=== PATIENT | male | born 1965 | race Caucasian/White ===

== ENCOUNTER 2017-05-13 06:05 | Day surgery (SDC) | payer OTHER ==
[~2017-05-13 06:05] MED LIST: ACET325UDC; ACET325UDC PO; AMOX500 PO; Abreva2 GM TOP; CEFU250 PO; CHLO100 PO; CHLORHEXADINE; CHLORHEXIDINE 0.12%; CITRATE OF MAG296 ML PO; CLAR500 PO; CLOBETTC; CLOBETTC TP; CODEINE; DIAZ10; DIAZ10 PO; DIAZ5 PO; DICL75ER; DICL75ER PO; DIPH12.5EL PO; DIPH50 PO; GUAI100SY; GUAI120S1 PO; GUAI600T33; GUAI600T33 PO; HALO5 PO; HALOPERIDOL; HALOPERIDOL 10 MG; Haldol 5 mg Tab5 MG; IBUP100S; IBUP100S PO; IBUP800 PO; LANACANE; LANS30EC; LANS30EC PO; LEVFLO500 PO; LORA1SY; LORA1SY PO; LORATADINE 5 MG/5 ML; MAGCIT300 PO; MIRALAX17 GM PO; MOM; MOM PO; MULT50L PO; MULVITMIND PO; OMEP20ER PO; OMEP40CA12; OMEP40CA12 PO; OMEPRAZOLE MAGN20 MG PO; PERIDEX15 ML UD; POLY17UD; POLY17UD PO; PROC10; RANI150 PO; RANI150EL PO; RANITIDINE; RANITIDINE SYRUP PO; ROBITUSSIN; Ranitidine15 MG/1 ML PO; SENN187; SENN187 PO; SENN8.8S8 PO; SENNA LAX; Senna Laxative8.6 MG PO; THIO25; THIO25 PO; TRI VITAMIN PO; TRIPLE ABX; TRIPLE ANTIBIO1 EACH TP; TRIPLE ANTIBIOT28 GM; Zofran Odt4 MG PO; [UNRECOGNIZED DRUG - OTHER]; [UNRECOGNIZED DRUG - OTHER]; [UNRECOGNIZED DRUG - OTHER]; [UNRECOGNIZED DRUG - OTHER]; [UNRECOGNIZED DRUG - OTHER]; [UNRECOGNIZED DRUG - OTHER] TOP
[2017-05-13] MEDS ORDERED: Haldol 5 mg Tab5 MG PO (07:25)
[2018-02-03] MEDS ORDERED: Abreva2 GM TOP (10:28)
[2018-02-03] MEDS ORDERED: FERROUS SULFATE PO (10:28)
[2018-02-03] MEDS ORDERED: ONDA4ODT PO (10:28)
[2018-02-05] MEDS ORDERED: LEVFLO500 PO (08:59)
== END 2017-05-13 08:38 | disposition home or self-care (01) ==
LOC: ORSCSDS 06:05
PROVIDERS: Otolaryngology
PROC: 09C37ZZ Extirpation of Matter from Right External Auditory Canal, Via Natural or Artificial Opening (ICD-10-PCS; principal; 2017-05-13 07:30)
PROC: 0HB3XZZ Excision of Left Ear Skin, External Approach (ICD-10-PCS; principal; 2017-05-13 07:30)
DX: H74.92 Unspecified disorder of left middle ear and mastoid (principal); F84.0 Autistic disorder; F20.9 Schizophrenia, unspecified; Z79.899 Other long term (current) drug therapy
CPT/HCPCS: J1100; J2250; J7120

== ENCOUNTER 2018-05-18 13:21 | Day surgery (SDC) | payer OTHER ==
[~2018-05-18] VITALS: Ht 177.8 cm; Wt 66.7 kg
[2018-05-18 08:28] LABS: BASOPHILS ABSOLUTE AUTO 0.05 K/mm3 (0.00-0.23); BASOPHILS PERCENT AUTO 0 % (0-2); EOSINOPHILS ABSOLUTE AUTO 0.04 K/mm3 (0.00-0.68); EOSINOPHILS PERCENT AUTO 0 % (0-6); Hematocrit 41.4 % (37.0-53.0); Hemoglobin 13.3 g/dL (13.5-17.5); IMMATURE GRAN ABSOLUTE AUTO 0.08 K/mm3 (0.00-0.10); IMMATURE GRAN PERCENT AUTO 1 % (0-1); LYMPHOCYTES ABSOLUTE AUTO 0.72 K/mm3 (0.84-5.20); LYMPHOCYTES PERCENT AUTO 6 % (21-46); MONOCYTES ABSOLUTE AUTO 0.79 K/mm3 (0.16-1.47); MONOCYTES PERCENT AUTO 7 % (4-13); Mean Corpuscular HGB 28.9 pg (26.0-34.0); Mean Corpuscular HGB Conc 32.1 g/dL (31.5-36.5); Mean Corpuscular Volume 90 fL (80-100); Mean Platelet Volume 9.7 fL (9.1-12.4); NEUTROPHILS ABSOLUTE AUTO 10.08 K/mm3 (1.96-9.15); NEUTROPHILS PERCENT AUTO 86 % (41-73); Platelet Count 212 K/mm3 (150-400); RDW Coefficient Variation 15.2 % (11.7-14.2); RDW Standard Deviation 50.4 fL (35.1-46.3); Red Blood Cell Count 4.61 M/mm3 (4.30-5.90); White Blood Cell Count 11.76 K/mm3 (4.00-11.30)
[2018-05-18 08:54] LABS: Anion Gap 7 mmol/L (6-16); Blood Urea Nitrogen 13 mg/dL (8-24); Bun/Creatinine Ratio 21.5 (12.0-20.0); CO2, Blood 28 mmol/L (21-32); Calcium, Blood 8.4 mg/dL (8.5-10.1); Chloride, Blood 104 mmol/L (98-108); Glomerular Filtration Rate >60 (60-); Glucose, Blood 110 mg/dL (70-99); Potassium, Blood 3.6 mmol/L (3.5-5.5); Sodium, Blood 139 mmol/L (136-145)
[2018-05-18 09:01] LABS: Thyroid Stimulating Hormone 0.758 uIU/mL (0.360-4.800)
--- NOTE | 2018-05-18 10:58 | NUR ---
05/18/18 1058 Basilia Michelle late entry: [facility]. pt is very sleepy and coughing frequently. non rebreather mask on and o2 sats maintained 93-94%. cough is dry but suction is maintained at bedside for prn use. caregivers called to pts side
[~2018-05-18 13:21] MED LIST changes: +FERROUS SULFATE PO; +Haldol 5 mg Tab5 MG PO; +IBUP600 PO; +ONDA4ODT PO
== END 2018-05-18 16:27 | disposition home or self-care (01) ==
LOC: ORSCSDS 13:21
PROVIDERS: Otolaryngology
PROC: 09C38ZZ Extirpation of Matter from Right External Auditory Canal, Via Natural or Artificial Opening Endoscopic (ICD-10-PCS; principal; 2018-05-18 07:30)
PROC: 09B Ear, Nose, Sinus, Excision (ICD-10-PCS; principal; 2018-05-18 07:30)
DX: H74.92 Unspecified disorder of left middle ear and mastoid (principal); F20.9 Schizophrenia, unspecified; Z79.899 Other long term (current) drug therapy
CPT/HCPCS: 80048; 84443; 85025; J2250; J7120

== ENCOUNTER 2018-05-18 14:18 | Inpatient (IN) | payer OTHER ==
[~2018-05-18] VITALS: Ht 165.1 cm; Wt 62.5 kg
[2018-05-18 16:17] LABS: BASOPHILS ABSOLUTE AUTO 0.03 K/mm3 (0.00-0.23); BASOPHILS PERCENT AUTO 0 % (0-2); EOSINOPHILS PERCENT AUTO 0 % (0-6); Hematocrit 42.3 % (37.0-53.0); IMMATURE GRAN ABSOLUTE AUTO 0.05 K/mm3 (0.00-0.10); IMMATURE GRAN PERCENT AUTO 0 % (0-1); LYMPHOCYTES ABSOLUTE AUTO 0.59 K/mm3 (0.84-5.20); LYMPHOCYTES PERCENT AUTO 4 % (21-46); MONOCYTES ABSOLUTE AUTO 0.88 K/mm3 (0.16-1.47); MONOCYTES PERCENT AUTO 6 % (4-13); Mean Corpuscular HGB 29.5 pg (26.0-34.0); Mean Corpuscular HGB Conc 33.1 g/dL (31.5-36.5); Mean Corpuscular Volume 89 fL (80-100); Mean Platelet Volume 9.3 fL (9.1-12.4); NEUTROPHILS ABSOLUTE AUTO 12.72 K/mm3 (1.96-9.15); NEUTROPHILS PERCENT AUTO 89 % (41-73); Platelet Count 232 K/mm3 (150-400); RDW Coefficient Variation 15.2 % (11.7-14.2); RDW Standard Deviation 50.3 fL (35.1-46.3); Red Blood Cell Count 4.74 M/mm3 (4.30-5.90); White Blood Cell Count 14.27 K/mm3 (4.00-11.30)
--- NOTE | 2018-05-19 05:12 | NUR ---
SHIFT SUMMARY PT MEDICAL NO TELE STATUS. PT ALERT, NONVERBAL. NOTED HX OF AUTISM. PT IS A RESIDENT AT [facility]. CAREGIVER AT BEDSIDE T/O SHIFT. EPISODES OF COMBATIVENESS REPORTED BY KINESIOLOGY PROFESSOR WHEN PT BEING SLID OVER FROM ER GURNEY TO PCU RM BED AT TIME OF ADMIT YESTERDAY DAY SHIFT. PT OTHERWISE CALM AND SOMETIMES COOPERATIVE. PT TOLERATING VS ASSESSMENTS. VSS. LUNGS SOUNDS CLEAR T/O. SPO2 > 92% ON RA. PT NOTED TO HAVE DRIED BLOOD IN R EAR CANAL FROM PROCEDURE AT [facility]. PT INCONTINENT, WEARING ATTENDS. PRN [facility] CARE AND ATTENDS CHANGES PROVIDED. PT NON COOPERATIVE W/ BLOOD DRAW ATTEMPTS. PERMISSION FROM MD SHEN OBTAINED TO DRAW BLOOD FROM PT'S FOOT. PT NOT ALLOWING THIS BLOOD DRAW APPROACH EITHER. FLUIDS RUNNING PER ORDERS THROUGH IV STARTED IN ER THAT CAREGIVER STATES WAS SUCCESSFULL BECAUSE PT WAS "STILL PRETTY OUT OF IT." PT IN BED SLEEPING W/ CAREGIVER AT BEDSIDE. WILL CONTINUE TO MONITOR AND PROVIDE CARE UNTIL REPORT OFF TO DAY SHIFT RN.
--- NOTE | 2018-05-19 07:50 | NUR ---
Update: Dr. Otero at bedside - to place orders for additional labs to be drawn this AM if pt allows.
--- NOTE | 2018-05-19 11:26 | NUR ---
Assumed Care: Assumed care of pt at approx 0700. VSS. In no apparent sign of distress. Pt is A&O, but is non-verbal and has a hx of autism. Pt is refusing to take anything orally at this time. Repositons self. In no apparent sing of pain. Caregiver at bedside. Dr. Otero at bedside this AM to see pt. See shift assessment for detailed assessment. No apparent unmet needs at this time. Attempted to draw labs from IV this AM, but no blood return despite IV flusing well. Pt currently resting in bed with call light within reach. Denies any further questions, complaints or requests at this time. Will continue to monitor.
--- NOTE | 2018-05-19 17:23 | NUR ---
Per admit trigger, I attempted to meet mela Delgadillo regarding an advanced directive. Per RN, he is non-verbal and unable to understand the meaning and purpose of this document. He lives at [facility]. No family or facility staff present.
--- NOTE | 2018-05-19 18:04 | NUR ---
Shift Summary No acute changes since initial shift assessment. VSS. In no apparent sign of distress. Pt has repositioned self independently. No s/sx of pain or distress. Pt was compliant with taking medications once this shift. Pt has had a poor appetite. Dr. Alas at bedside to examine pt ears, which have a small amnt of dried blood noted inside. Pt has not experienced any acute events or complications today. Currently resting in bed with call light within reach. Caregivers at bedside. Caregivers deny any further questions, complaints or requests at this time. Will continue to montior until report is given to moses PALACIO.
--- NOTE | 2018-05-20 06:43 | NUR ---
PCU NOC SHIFT SUMMARY PATIENT REMAINS ALERT AND ORIENTED TO HIS BASELINE T/O SHIFT. PATIENT IS NONVERBAL AND FIGETS IN BED. PATIENT IS MODERATELY COOPERATIVE WITH CARE. PATIENT HAD MILD FEVER RELIEVED WITH MEDICATION PER EMAR. RESP E/U ON ROOM AIR AND VSS. NO ACUTE DISTRESS NOTED T/O SHIFT. WILL CONTINUE TO MONITOR AND GIVE REPORT TO DAYSHIFT RN.
--- NOTE | 2018-05-20 12:04 | NUR ---
Assumed Care: Assumed care of pt at approx 0700. VSS. In no apparent sign of distress. Pt is A&O, but has hx of autism, is non-verbal and refusing some care. Pt more cooperative today and took AM meds. Pt did not tolerate attempts to draw AM labs this AM - paged Dr. Otero regarding pt possibly needing IV fluid therapy, positive blood culture results, and request for medication to help relax the pt to place Powerglide for future lab draws/medications. Pt currently resting in bed with call light within reach. No s/sx of pain and no apparent unmet needs at this time. Caregiver at bedside denies any further questions, complaints or requests at this time. Will continue to monitor and waiting for call back from Dr. Otero.
--- NOTE | 2018-05-20 13:18 | NUR ---
Update: Report called to mehran PALACIO on medical floor. Pt to transfer to room 303. Spoke [address] Otero, and received order for abx for positive blood cultures. Received order for sedation to place power glide. Also received order for fluids. Communicated to med floor RN that pt will need to have powerglide placed. Pt being transferred via wheelchair and accompanied by PCU staff.
[2018-05-20 15:10] LABS: BASOPHILS ABSOLUTE AUTO 0.03 K/mm3 (0.00-0.23); BASOPHILS PERCENT AUTO 0 % (0-2); EOSINOPHILS ABSOLUTE AUTO 0.19 K/mm3 (0.00-0.68); EOSINOPHILS PERCENT AUTO 1 % (0-6); Hematocrit 37.8 % (37.0-53.0); Hemoglobin 12.3 g/dL (13.5-17.5); IMMATURE GRAN ABSOLUTE AUTO 0.12 K/mm3 (0.00-0.10); IMMATURE GRAN PERCENT AUTO 1 % (0-1); LYMPHOCYTES ABSOLUTE AUTO 1.18 K/mm3 (0.84-5.20); LYMPHOCYTES PERCENT AUTO 8 % (21-46); MONOCYTES ABSOLUTE AUTO 0.83 K/mm3 (0.16-1.47); MONOCYTES PERCENT AUTO 6 % (4-13); Mean Corpuscular HGB 28.9 pg (26.0-34.0); Mean Corpuscular HGB Conc 32.5 g/dL (31.5-36.5); Mean Corpuscular Volume 89 fL (80-100); NEUTROPHILS ABSOLUTE AUTO 12.51 K/mm3 (1.96-9.15); NEUTROPHILS PERCENT AUTO 84 % (41-73); Platelet Count 209 K/mm3 (150-400); RDW Standard Deviation 49.1 fL (35.1-46.3); Red Blood Cell Count 4.26 M/mm3 (4.30-5.90); White Blood Cell Count 14.86 K/mm3 (4.00-11.30)
--- NOTE | 2018-05-20 19:46 | NUR ---
SHIFT SUMMARY PATIENT TRASNFERED FROM PCU. HX AUTISM. A&O TO SELF. NONVERBAL. PILOT BOAT CAPTAIN AT BEDSIDE. PG PLACED BY PROCEDURE NURSE IN [facility]. PATIENT VERY ANXIOUS AND AGITATED. RN MEDICATED PER EMAR. RA. FLUIDS RUNNING. CALL LIGHT WITHIN REACH. NO ACUTE CHANGES.
--- NOTE | 2018-05-21 04:51 | NUR ---
SHIFT SUMMARY PT TX FROM PCU PRIOR TO START OF NOC SHIFT. PT IS AUTISTIC, NONVERBAL AND HAS 24 HR CAREGIVERS. PER SHIFT REPORT, PT WAS HAVING ROUTINE PROCEDURE UNDER SEDATION AND ASPIRATED AT SOME POINT IN THE PROCESS. ADMITTED FOR POSSIBLE ASPIRATION PNM. PT RECEIVING IVF'S AND ABX PER EMAR WHEN HE DECIDED TO GET OOB AFTER THROWING HIS GLASS OF SODA. PT THEN BECAME UNCO-OP, AGITATED, AND VIOLENT JERKING AWAY FROM CAREGIVER AND SWINGING HIS ARMS AND FISTS AT STAFF. PT WOULD NOT RETURN TO BED OR BACK UP TO RELIEVE TENSION ON IV TUBING. PT THEN JERKED HIS ARM HARD AND RIPPED END OF TUBING FROM IV SITE, WHICH STARTED DRAINING BLOOD FROM UNCAPPED END OF TUBING. PT REFUSED TO CO-OP OR ACCEPT ASSISTANCE AND WAS SLINGING BLOOD ALL OVER SELF, STAFF, AND FLOOR. END OF TUBING EVENTUALLY CLAMPED AND PT ASSISTED BACK INTO BED. DR MEDELLIN NOTIFIED FOR ORDERS. ATIVAN ADMINISTERED AND AFTER PT HAD CALMED DOWN SOMEWHAT, CHIKA PALACIO WAS ABLE TO PLACE IV ACCESS WITH ASSIST FROM STAFF, SECURITY, AND CAREGIVER. PT WAS CONTINENT OF URINE AT START OF SHIFT, AMBULATING TO BTHRM WITH ASSIST FROM CAREGIVER. BUT LATER VOIDED "ALL OVER THE BED DELIBERATELY" PER CAREGIVER. COMPLETE LINEN CHANGES X4 AFTER START OF NOC SHIFT. PT FINALLY DID GO TO SLEEP, AND HAS BEEN RESTING QUIETLY HF WITH CAREGIVER AT BS. NO S/SX OF DISTRESS NOTED OR REPORTED. PT WILL NEED TO BE WOKE SOON FOR AM MEDS AND CARE. LUNGS T/O DIMINISHED THRU OUT WITH CRACKLES IN UPPER AND LOWER LEFT LOBES. BOWEL CARE GIVEN PRIOR TO START OF NOC SHIFT. CAREGIVERS DECLINED FURTHER BOWEL CARE UNTIL THIS AM. CALL LT IN REACH. WILL MONITOR.
--- NOTE | 2018-05-21 11:44 | NUR ---
IV RED AND SWOLLEN. WILL REMOVE.
[2018-05-21 16:17] LABS: BASOPHILS ABSOLUTE AUTO 0.04 K/mm3 (0.00-0.23); BASOPHILS PERCENT AUTO 0 % (0-2); EOSINOPHILS ABSOLUTE AUTO 0.27 K/mm3 (0.00-0.68); EOSINOPHILS PERCENT AUTO 3 % (0-6); Hemoglobin 11.7 g/dL (13.5-17.5); IMMATURE GRAN ABSOLUTE AUTO 0.07 K/mm3 (0.00-0.10); IMMATURE GRAN PERCENT AUTO 1 % (0-1); LYMPHOCYTES ABSOLUTE AUTO 1.27 K/mm3 (0.84-5.20); LYMPHOCYTES PERCENT AUTO 12 % (21-46); MONOCYTES PERCENT AUTO 7 % (4-13); Mean Corpuscular HGB 29.1 pg (26.0-34.0); Mean Corpuscular HGB Conc 32.5 g/dL (31.5-36.5); Mean Corpuscular Volume 90 fL (80-100); Mean Platelet Volume 9.6 fL (9.1-12.4); NEUTROPHILS ABSOLUTE AUTO 8.25 K/mm3 (1.96-9.15); NEUTROPHILS PERCENT AUTO 78 % (41-73); Platelet Count 217 K/mm3 (150-400); RDW Coefficient Variation 15.2 % (11.7-14.2); RDW Standard Deviation 50.5 fL (35.1-46.3); Red Blood Cell Count 4.02 M/mm3 (4.30-5.90)
[2018-05-21 16:32] LABS: Vancomycin, Trough 3.1 ug/mL (5.0-10.0)
--- NOTE | 2018-05-21 18:05 | NUR ---
MEDICATION ERROR. SCANNED OR LEVAQUIN, GAVE MEDICATION CRUSHED. AFTER THIS RN EDUARDO BLOOD I HUNG FLUIDS. AT THIS TIME I ADMINISTERED 1 DOSE OF IV LEVAQUIN. MEDICATION WAS CHANGED FROM IV TO PO. NOTIFIED DR. MEDELLIN OF THIS, STATED TO DOCUMENT AND STATED THAT PATIENT SHOULD EXPERIENCE NO ADVERSE REACTION. NOTED PATIENT TO BE MORE AGGITATED AFTER GIVING ORAL ATIVAN. NOTIFIED DR. MEDELLIN. STATED TO NOTE THIS. AND ONLY GIVE ATIVAN IF PATIENT APPEARS EXTREMELY AGITATED OR UPSET.
--- NOTE | 2018-05-22 06:09 | NUR ---
NOC SHIFT SUMMARY THIS PATIENT IS A RESIDENT OF [facility]. HIS CARE GIVERS HAVE BEEN WITH HIM THROUGH THE NIGHT. HE IS VERY ANXIOUS WITH CARE AND ESPECIALLY WITH ANY MANIPULATION OF HIS IV LINE. HE IS COMPLIANT WITH CARE AND DOES TAKE MEDS NEEDED. HE HAS BEEN AWAKE WATCHING TV THIS NIGHT. APPEARS IN NO ACUTE DISTRESS. WILL CONTINUE TO MONITOR.
[2018-05-22] MEDS ORDERED: Nystatin15 GM TOP (10:13)
[2018-05-22] MEDS ORDERED: Milk Of Ma400 MG/5 M PO (10:14)
[2018-05-22] MEDS ORDERED: Abreva2 GM TOP (10:16)
[2018-05-22] MEDS ORDERED: FERROUS SU PO (11:31)
[2018-05-22] MEDS ORDERED: LEVFLO500 PO (11:34)
[2018-05-22] MEDS ORDERED: CEFP125SU PO (11:35)
--- NOTE | 2018-05-22 13:26 | NUR ---
DISCHARGE SUMMARY: PT WAS COOPERATIVE WITH CARE. REMOVED IV'S X 2 SITES WITH 1 ASSIST FROM CARE PROVIDER IN ROOM "LO". LO VERBILIZED UNDERSTANDING OF D/C INSTRUCTIONS. SHE IS AWARE OF RX BEING FAXED TO [facility]. LO HAS HIS BELONGINGS. LO AND PT AMBULATED TO FACILITY ENTRANCE FOR D/C TO HALF-WAY.
== END 2018-05-22 13:25 | disposition home or self-care (01) | DRG 871 ==
LOC: ER 14:18 → PCU 18:01 → MEDS 05-20 13:32
PROVIDERS: Family Medicine; Physician Assistant; ADMIT Hospitalist
DX: A41.9 Sepsis, unspecified organism (principal); J69.0 Pneumonitis due to inhalation of food and vomit; F84.0 Autistic disorder; H61.23 Impacted cerumen, bilateral; F20.9 Schizophrenia, unspecified; Z88.8 Allergy status to other drugs, medicaments and biological substances; Z79.899 Other long term (current) drug therapy
CPT/HCPCS: 36415; 71046; 80202; 83605; 85025; 87040; 96365; 96375; 99285-25; J0696; J1956; J2060; J2405; J3370; J7030; J7042

== ENCOUNTER 2018-08-05 22:00 | Emergency (ER) | payer OTHER ==
[~2018-08-05] VITALS: Ht 172.7 cm; Wt 61.2 kg
[~2018-08-05 22:00] MED LIST changes: +CEFP125SU PO; +FERROUS SU PO; +Milk Of Ma400 MG/5 M PO; +Nystatin15 GM TOP
[2018-08-05] MEDS ORDERED: TRI VITAMIN (22:21)
[2018-08-05] MEDS ORDERED: GAVILAX17 GM PO (22:21)
[2018-08-05] MEDS ORDERED: Senna8.6 MG PO (22:22)
[2018-08-05] MEDS ORDERED: OMEPRAZOLE MAGN20 MG PO (22:23)
[2018-08-05] MEDS ORDERED: Periogard473 ML (22:23)
[2018-08-05] MEDS ORDERED: VRAYLAR3 MG PO (22:23)
[2018-08-05] MEDS ORDERED: Haloperidol10 MG PO (22:24)
[2018-08-05] MEDS ORDERED: DIAZ10 PO (22:24)
[2018-08-05] MEDS ORDERED: ROBITUSSIN NIG237 ML PO (22:25)
[2018-08-05] MEDS ORDERED: MAPAP160 MG/51 PO (22:26)
[2018-08-05] MEDS ORDERED: IBUP600 PO (22:26)
[2018-08-05] MEDS ORDERED: GUAI600T33 PO (22:27)
[2018-08-05] MEDS ORDERED: DIPH12.5EL PO (22:27)
[2018-08-05] MEDS ORDERED: ONDA4ODT MM (22:28)
[2018-08-05 23:11] LABS: Source, Urine Catheter
[2018-08-05 23:15] LABS: Bilirubin, Urine Neg (Neg); Blood, Urine 1+ (Neg); Glucose Qualitative, Urine Neg (Neg); Ketones, Urine 4+ (Neg); Leukocyte Esterase, Urine 1+ (Neg); Nitrite, Urine Neg (Neg); Protein, Urine 3+ (Neg); Urobilinogen, Urine NORM (Normal); pH, Urine 6.5 (5.0-8.0)
[2018-08-05 23:22] LABS: Appearance, Urine Hazy (Clear); Color, Urine Yellow (P-Yellow); Red Blood Cells, Urine 0-2 /hpf (0-2)
[2018-08-05 23:23] LABS: Amorphous Mod (0-Heavy); Bacteria Few /hpf; Mucus Light (0-Heavy); Squamous Epithelial Cells Rare /hpf (Few)
[2018-08-05 23:24] LABS: BASOPHILS ABSOLUTE AUTO 0.08 K/mm3 (0.00-0.23); BASOPHILS PERCENT AUTO 1 % (0-2); EOSINOPHILS ABSOLUTE AUTO 0.23 K/mm3 (0.00-0.68); EOSINOPHILS PERCENT AUTO 2 % (0-6); Hematocrit 44.1 % (37.0-53.0); Hemoglobin 14.8 g/dL (13.5-17.5); IMMATURE GRAN ABSOLUTE AUTO 0.03 K/mm3 (0.00-0.10); IMMATURE GRAN PERCENT AUTO 0 % (0-1); LYMPHOCYTES PERCENT AUTO 11 % (21-46); MONOCYTES ABSOLUTE AUTO 1.21 K/mm3 (0.16-1.47); MONOCYTES PERCENT AUTO 12 % (4-13); Mean Corpuscular HGB 30.5 pg (26.0-34.0); Mean Corpuscular HGB Conc 33.6 g/dL (31.5-36.5); Mean Corpuscular Volume 91 fL (80-100); Mean Platelet Volume 9.6 fL (9.1-12.4); NEUTROPHILS ABSOLUTE AUTO 7.57 K/mm3 (1.96-9.15); NEUTROPHILS PERCENT AUTO 74 % (41-73); Platelet Count 243 K/mm3 (150-400); RDW Coefficient Variation 13.7 % (11.7-14.2); RDW Standard Deviation 45.8 fL (35.1-46.3); Red Blood Cell Count 4.86 M/mm3 (4.30-5.90); White Blood Cell Count 10.22 K/mm3 (4.00-11.30)
[2018-08-05 23:26] LABS: U Amphetamine Screen Not Detected; U Barbituate Screen Not Detected; U Benzodiazapine Screen Not Detected; U Buprenorphine Screen Not Detected; U Cannabinoids Screen Not Detected; U Cocaine Screen Not Detected; U Methadone Screen Not Detected; U Methamphetamine Screen Not Detected; U Opiates Screen Not Detected; U Oxycodone Screen Not Detected; U Phencyclidine Screen Not Detected; U Propoxyphene Screen Not Detected
[2018-08-05 23:46] LABS: Alanine Aminotransfer (ALT/SGP 61 U/L (12-78); Albumin/Globulin Ratio 1.2 (0.8-1.8); Alk Phos 67 U/L (50-136); Anion Gap 11 mmol/L (6-16); Aspartate Aminotrans (AST/SGOT 74 U/L (12-37); Bilirubin, Total 0.7 mg/dL (0.1-1.0); Blood Urea Nitrogen 17 mg/dL (8-24); Bun/Creatinine Ratio 23.9 (12.0-20.0); CO2, Blood 26 mmol/L (21-32); Calcium, Blood 8.6 mg/dL (8.5-10.1); Chloride, Blood 101 mmol/L (98-108); Creatinine, Blood 0.71 mg/dL (0.60-1.20); Globulin, Blood 3.4 g/dL (2.2-4.0); Glomerular Filtration Rate >60 (60-); Glucose, Blood 111 mg/dL (70-99); Potassium, Blood 3.2 mmol/L (3.5-5.5); Salicylate <1.7 mg/dL (2.8-20.0); Sodium, Blood 138 mmol/L (136-145); Total Protein, Blood 7.4 g/dL (6.4-8.2); Troponin I <0.015 ng/mL (0.000-0.040)
[2018-08-05 23:53] LABS: CPK Creatine Kinase 960 U/L (39-308)
[2018-08-06 00:08] LABS: Creatine Kinase MB 25.6 ng/mL (0.0-3.6); Creatine Kinase MB Index 2.7 (0.0-4.0)
[2018-08-06] MEDS ORDERED: CEFD300 PO (01:19)
== END 2018-08-06 02:55 | disposition home or self-care (01) ==
LOC: ER 22:00
PROVIDERS: Emergency Medicine
DX: N39.0 Urinary tract infection, site not specified (principal); R41.82 Altered mental status, unspecified; E87.6 Hypokalemia; Z88.8 Allergy status to other drugs, medicaments and biological substances; Z79.899 Other long term (current) drug therapy
CPT/HCPCS: 36415; 51701; 70450; 71045; 80053; 81001; 82550; 82553; 83605; 84484; 85025; 87086; 93005; 93010; 96361-59; 96365-59; 96375-59; 99285-25; G0480; J0696; J2060; J7030

== ENCOUNTER 2018-08-26 06:50 | Day surgery (SDC) | payer OTHER ==
[~2018-08-26] VITALS: Ht 175.3 cm; Wt 72.7 kg
[2018-08-26 08:27] LABS: BASOPHILS ABSOLUTE AUTO 0.02 K/mm3 (0.00-0.23); BASOPHILS PERCENT AUTO 0 % (0-2); EOSINOPHILS ABSOLUTE AUTO 0.11 K/mm3 (0.00-0.68); EOSINOPHILS PERCENT AUTO 2 % (0-6); Hematocrit 42.2 % (37.0-53.0); Hemoglobin 14.3 g/dL (13.5-17.5); IMMATURE GRAN ABSOLUTE AUTO 0.01 K/mm3 (0.00-0.10); IMMATURE GRAN PERCENT AUTO 0 % (0-1); LYMPHOCYTES ABSOLUTE AUTO 0.78 K/mm3 (0.84-5.20); LYMPHOCYTES PERCENT AUTO 12 % (21-46); MONOCYTES ABSOLUTE AUTO 0.48 K/mm3 (0.16-1.47); MONOCYTES PERCENT AUTO 8 % (4-13); Mean Corpuscular HGB 30.6 pg (26.0-34.0); Mean Corpuscular HGB Conc 33.9 g/dL (31.5-36.5); Mean Corpuscular Volume 90 fL (80-100); Mean Platelet Volume 9.8 fL (9.1-12.4); NEUTROPHILS PERCENT AUTO 78 % (41-73); Platelet Count 274 K/mm3 (150-400); RDW Coefficient Variation 13.8 % (11.7-14.2); RDW Standard Deviation 45.8 fL (35.1-46.3); Red Blood Cell Count 4.67 M/mm3 (4.30-5.90)
[2018-08-26 08:35] LABS: Alanine Aminotransfer (ALT/SGP 47 U/L (12-78); Albumin, Blood 3.9 g/dL (3.4-5.0); Albumin/Globulin Ratio 1.1 (0.8-1.8); Alk Phos 76 U/L (50-136); Anion Gap 8 mmol/L (6-16); Aspartate Aminotrans (AST/SGOT 36 U/L (12-37); Bilirubin, Total 0.4 mg/dL (0.1-1.0); Blood Urea Nitrogen 11 mg/dL (8-24); Bun/Creatinine Ratio 18.8 (12.0-20.0); CO2, Blood 25 mmol/L (21-32); CPK Creatine Kinase 370 U/L (39-308); Calcium, Blood 8.7 mg/dL (8.5-10.1); Chloride, Blood 103 mmol/L (98-108); Creatinine, Blood 0.59 mg/dL (0.60-1.20); Globulin, Blood 3.4 g/dL (2.2-4.0); Glomerular Filtration Rate >60 (60-); Glucose, Blood 117 mg/dL (70-99); Potassium, Blood 3.2 mmol/L (3.5-5.5); Sodium, Blood 136 mmol/L (136-145); Total Protein, Blood 7.3 g/dL (6.4-8.2); Troponin I <0.015 ng/mL (0.000-0.040)
--- NOTE | 2018-08-26 08:52 | NUR ---
08/26/18 0852 Eliana Molina ANESTHESIA PROVIDED BY DR MURGUIA. ALL DOSES OF MEDICATION DIRECTED BY DR. MURGUIA.
--- NOTE | 2018-08-26 09:31 | NUR ---
08/26/18 0931 Gricelda Hsu V PT SLEEPING ON BED, SIDE RAILS AND BUMPERS IN PLACE, CAREGIVERS AT BEDSIDE PERFORMING HYGIENE ON PT. PT'S BP IS LOW AND DR. MURGUIA AWARE, NO ORDERS GIVEN AT THIS TIME. OTHER VSS. CONTINUING TO MONITOR.
== END 2018-08-26 10:06 | disposition home or self-care (01) ==
LOC: ORSCSDS 06:50
PROVIDERS: Family Medicine; Internal Medicine Gastroenterology
PROC: 0DB58ZX Excision of Esophagus, Via Natural or Artificial Opening Endoscopic, Diagnostic (ICD-10-PCS; principal; 2018-08-26 08:00)
DX: K22.70 Barrett's esophagus without dysplasia (principal); K31.89 Other diseases of stomach and duodenum; K44.9 Diaphragmatic hernia without obstruction or gangrene; K21.0 Gastro-esophageal reflux disease with esophagitis; F79 Unspecified intellectual disabilities
CPT/HCPCS: 80053; 82140; 82550; 83690; 84484; 85025; 85651; 88305; J1980; J2250; J2405; J2704; J7120

== ENCOUNTER → 2018-08-26 | Outpatient (CLI) | payer OTHER ==
[~2018-08-26] MED LIST changes: +CEFD300 PO; +CHLORHEXIDINE FL1 ML; +DIPH12.5EL; +FEROSUL220 MG/5 M PO; +GAVILAX17 GM PO; +Haloperidol10 MG; +Haloperidol10 MG PO; +Lotrimin Ultra12 GM TOP; +MAPAP160 MG/51 PO; +Milk Of Ma400 MG/5 M; +Mupirocin22 GM; +NYSTRITC TOP; +ONDA4ODT MM; +Periogard473 ML; +ROBITUSSIN NIG237 ML PO; +Senna Laxative8.6 MG; +Senna8.6 MG PO; +TRI VITAMIN; +TRI-VI-SOL DROP50 ML; +TRIPLE ANTIBIO1 EACH; +VRAYLAR1.5 MG PO; +VRAYLAR3 MG PO; +[UNRECOGNIZED DRUG - OTHER]; +[UNRECOGNIZED DRUG - OTHER] PO
== END | disposition home or self-care (01) ==
LOC: LAB 13:52 → LAB SHORT 13:52
DX: L02.211 Cutaneous abscess of abdominal wall (principal)
CPT/HCPCS: 87070; 87077; 87186; 87205

== ENCOUNTER 2018-12-19 06:17 | Day surgery (SDC) | payer OTHER ==
[~2018-12-19] VITALS: Ht 177.8 cm; Wt 66.7 kg
--- NOTE | 2018-12-19 07:25 | NUR ---
12/19/18 0725 Cici Yanez PT TRANSFERRED FROM [facility] TO [facility] VIA 3 PERSON ASSIST. PT USMAN, WAVING TO STAFF.
[2018-12-19 07:51] LABS: BASOPHILS ABSOLUTE AUTO 0.05 K/mm3 (0.00-0.23); BASOPHILS PERCENT AUTO 1 % (0-2); EOSINOPHILS ABSOLUTE AUTO 0.19 K/mm3 (0.00-0.68); EOSINOPHILS PERCENT AUTO 4 % (0-6); Hematocrit 44.4 % (37.0-53.0); Hemoglobin 15.2 g/dL (13.5-17.5); IMMATURE GRAN ABSOLUTE AUTO 0.01 K/mm3 (0.00-0.10); IMMATURE GRAN PERCENT AUTO 0 % (0-1); LYMPHOCYTES ABSOLUTE AUTO 1.33 K/mm3 (0.84-5.20); LYMPHOCYTES PERCENT AUTO 26 % (21-46); MONOCYTES ABSOLUTE AUTO 0.53 K/mm3 (0.16-1.47); MONOCYTES PERCENT AUTO 10 % (4-13); Mean Corpuscular HGB 31.7 pg (26.0-34.0); Mean Corpuscular HGB Conc 34.2 g/dL (31.5-36.5); Mean Corpuscular Volume 93 fL (80-100); Mean Platelet Volume 9.1 fL (9.1-12.4); NEUTROPHILS ABSOLUTE AUTO 3.07 K/mm3 (1.96-9.15); NEUTROPHILS PERCENT AUTO 59 % (41-73); Platelet Count 264 K/mm3 (150-400); RDW Coefficient Variation 12.3 % (11.7-14.2); White Blood Cell Count 5.18 K/mm3 (4.00-11.30)
[2018-12-19 08:18] LABS: Anion Gap 3 mmol/L (6-16); CO2, Blood 29 mmol/L (21-32); Chloride, Blood 102 mmol/L (98-108); Sodium, Blood 134 mmol/L (136-145); Thyroxine (T4) 6.3 ug/dL (4.5-12.1)
[2018-12-19 08:19] LABS: Alanine Aminotransfer (ALT/SGP 43 U/L (12-78); Albumin, Blood 4.1 g/dL (3.4-5.0); Albumin/Globulin Ratio 1.2 (0.8-1.8); Alk Phos 76 U/L (50-136); Aspartate Aminotrans (AST/SGOT 33 U/L (12-37); Bilirubin, Total 0.3 mg/dL (0.1-1.0); Blood Urea Nitrogen 12 mg/dL (8-24); Bun/Creatinine Ratio 21.4 (12.0-20.0); Calcium, Blood 8.5 mg/dL (8.5-10.1); Creatinine, Blood 0.56 mg/dL (0.60-1.20); Globulin, Blood 3.4 g/dL (2.2-4.0); Glomerular Filtration Rate >60 (60-); Glucose, Blood 120 mg/dL (70-99); Total Protein, Blood 7.5 g/dL (6.4-8.2)
== END 2018-12-19 08:30 | disposition home or self-care (01) ==
LOC: ORSCSDS 06:17
PROVIDERS: Otolaryngology
PROC: 09C37ZZ Extirpation of Matter from Right External Auditory Canal, Via Natural or Artificial Opening (ICD-10-PCS; principal; 2018-12-19 07:30)
PROC: 0HD3XZZ Extraction of Left Ear Skin, External Approach (ICD-10-PCS; principal; 2018-12-19 07:30)
DX: H70.12 Chronic mastoiditis, left ear (principal); H61.21 Impacted cerumen, right ear; F84.0 Autistic disorder; K21.0 Gastro-esophageal reflux disease with esophagitis; D50.8 Other iron deficiency anemias; R73.9 Hyperglycemia, unspecified; F20.9 Schizophrenia, unspecified; F41.9 Anxiety disorder, unspecified; Z79.899 Other long term (current) drug therapy
CPT/HCPCS: 80053; 83036; 84436; 84443; 85025; J2250; J2704; J7120

== ENCOUNTER 2020-01-17 11:34 | Day surgery (SDC) | payer OTHER ==
[~2020-01-17] VITALS: Ht 175.3 cm; Wt 67.7 kg
[~2020-01-17 11:34] MED LIST changes: +ASCORBIC ACID PO; +CHOLECALCIFEROL PO; +DIPHENHYDR12.5 MG/5 PO; +FERSU90EL PO; +OLAN5 PO; +Prozac20 MG PO; +SENNA LAXATIVE8.6 MG PO; +THIORIDAZINE HC50 MG PO; +VITAMIN A PO
[2020-01-17] MEDS ORDERED: Abreva2 GM TOP (12:00)
[2020-01-17] MEDS ORDERED: MAGCIT300 (12:01)
[2020-01-17] MEDS ORDERED: CHLORHEXIDINE FL1 ML MC (12:01)
[2020-01-17] MEDS ORDERED: IBUP600 PO (12:01)
[2020-01-17] MEDS ORDERED: ONDA4ODT (12:02)
[2020-01-17] MEDS ORDERED: GUAI600T33 PO (12:02)
[2020-01-17] MEDS ORDERED: OMEP20ER PO (12:02)
--- NOTE | 2020-01-17 12:06 | NUR ---
01/17/20 1206 Luciana Felder RN UNABLE TO LISTENT OT LUNGS AND HEART VIA STETHOSCOPE DUE TO PT HAVING AUTISM AND WOULD NOT COOPERATE UNLESS SEDATED. PT SITTING NEAR CARE GIVERS ROCKING BACK AND FORTH WHILE WAITING FOR ANESTHESIOLOGIST TO GIVE SEDATION.
[2020-01-17] MEDS ORDERED: HALO5 (12:09)
[2020-01-17] MEDS ORDERED: DIAZ10 (12:10)
== END 2020-01-17 15:00 | disposition home or self-care (01) ==
LOC: ORSCSDS 11:34
PROVIDERS: Otolaryngology
PROC: 09C37ZZ Extirpation of Matter from Right External Auditory Canal, Via Natural or Artificial Opening (ICD-10-PCS; principal; 2020-01-17 12:45)
PROC: 0HD3XZZ Extraction of Left Ear Skin, External Approach (ICD-10-PCS; principal; 2020-01-17 12:45)
DX: H70.12 Chronic mastoiditis, left ear (principal); H61.21 Impacted cerumen, right ear; F84.0 Autistic disorder; F20.9 Schizophrenia, unspecified; F89 Unspecified disorder of psychological development; Z79.899 Other long term (current) drug therapy
CPT/HCPCS: A9270; J1100; J2405; J2704; J7120; U0003

== ENCOUNTER 2020-06-16 10:49 | Emergency (ER) | payer OTHER ==
[~2020-06-16] VITALS: Ht 165.1 cm; Wt 68.0 kg
[~2020-06-16 10:49] MED LIST changes: +CHLORHEXIDINE FL1 ML MC; +HALO5; +MAGCIT300; +ONDA4ODT
[2020-06-16 13:25] LABS: Alanine Aminotransfer (ALT/SGP 18 U/L (12-78); Albumin, Blood 3.1 g/dL (3.4-5.0); Albumin/Globulin Ratio 0.8 (0.8-1.8); Alk Phos 58 U/L (50-136); Anion Gap 7 mmol/L (6-16); Aspartate Aminotrans (AST/SGOT 20 U/L (12-37); Bilirubin, Total 0.7 mg/dL (0.1-1.0); Blood Urea Nitrogen 10 mg/dL (8-24); Bun/Creatinine Ratio 15.8 (12.0-20.0); CO2, Blood 22 mmol/L (21-32); Calcium, Blood 8.1 mg/dL (8.5-10.1); Chloride, Blood 103 mmol/L (98-108); Creatinine, Blood 0.63 mg/dL (0.60-1.20); Globulin, Blood 3.9 g/dL (2.2-4.0); Glomerular Filtration Rate >60 (60-); Glucose, Blood 99 mg/dL (70-99); Sodium, Blood 132 mmol/L (136-145)
[2020-06-16 13:45] LABS: Influenza A, PCR NEGATIVE (NEGATIVE); Influenza B, PCR NEGATIVE (NEGATIVE); Resp Syncytial Virus, PCR NEGATIVE (NEGATIVE); SARS-Cov-2 (COVID-19) PCR, MMC NEGATIVE (NEGATIVE)
[2020-06-16 13:49] LABS: BASOPHILS ABSOLUTE AUTO 0.04 K/mm3 (0.00-0.23); BASOPHILS PERCENT AUTO 0 % (0-2); EOSINOPHILS PERCENT AUTO 0 % (0-6); Hematocrit 40.7 % (37.0-53.0); Hemoglobin 13.8 g/dL (13.5-17.5); IMMATURE GRAN ABSOLUTE AUTO 0.06 K/mm3 (0.00-0.10); IMMATURE GRAN PERCENT AUTO 0 % (0-1); LYMPHOCYTES PERCENT AUTO 3 % (21-46); MONOCYTES ABSOLUTE AUTO 0.66 K/mm3 (0.16-1.47); MONOCYTES PERCENT AUTO 4 % (4-13); Mean Corpuscular HGB 30.8 pg (26.0-34.0); Mean Corpuscular HGB Conc 33.9 g/dL (31.5-36.5); Mean Corpuscular Volume 91 fL (80-100); Mean Platelet Volume 9.2 fL (9.1-12.4); NEUTROPHILS ABSOLUTE AUTO 16.18 K/mm3 (1.96-9.15); NEUTROPHILS PERCENT AUTO 93 % (41-73); Platelet Count 232 K/mm3 (150-400); RDW Coefficient Variation 12.9 % (11.7-14.2); RDW Standard Deviation 43.3 fL (35.1-46.3); Red Blood Cell Count 4.48 M/mm3 (4.30-5.90); White Blood Cell Count 17.44 K/mm3 (4.00-11.30)
[2020-06-16] MEDS ORDERED: AMOCLA250S PO (15:04)
== END 2020-06-16 15:11 | disposition home or self-care (01) ==
LOC: ER 10:49
PROVIDERS: Emergency Medicine
DX: J18.9 Pneumonia, unspecified organism (principal); Z79.899 Other long term (current) drug therapy; Z20.822 Contact with and (suspected) exposure to COVID-19; Z88.8 Allergy status to other drugs, medicaments and biological substances
CPT/HCPCS: 0241U; 36415; 71045; 80053; 83690; 85025; 99284-25; A9270

== ENCOUNTER 2020-09-23 06:36 | Day surgery (SDC) | payer OTHER ==
[~2020-09-23 06:36] MED LIST changes: +AMOCLA250S PO
--- NOTE | 2020-09-23 07:52 | NUR ---
09/23/20 0751 Mabel Salgado PT WAS SITTING IN [place] WHEN CHECKED IN WAITING FOR DOCTORS. DR KEMP SAW PT IN [place] AT [address] GORDON SAW PT IN [place] AT [address]. DR HATHAWAY SAW PT AT 0720 AND THEN WENT TO THE [place] AT 0733 TO SEDATE PT TO TAKE DIRECTLY TO OR. THE OR CREW TRANSFERRED PT FROM [place] ON A GURNEY, DIRECTLY TO THE OPERATING ROOM. PT WAS NOT PRESENT IN THE [facility]O-OP AREA.
== END 2020-09-23 08:42 | disposition home or self-care (01) ==
LOC: ORSCSDS 06:36
PROVIDERS: Otolaryngology
PROC: 09B Ear, Nose, Sinus, Excision (ICD-10-PCS; principal; 2020-09-23 07:30)
PROC: 09C37ZZ Extirpation of Matter from Right External Auditory Canal, Via Natural or Artificial Opening (ICD-10-PCS; principal; 2020-09-23 07:30)
DX: H70.12 Chronic mastoiditis, left ear (principal); F84.0 Autistic disorder; Z79.899 Other long term (current) drug therapy
CPT/HCPCS: A9270; J2250; J2704; J7120

== ENCOUNTER 2020-12-12 10:23 | Emergency (ER) | payer OTHER ==
[~2020-12-12] VITALS: Ht 170.2 cm; Wt 69.8 kg
[2020-12-12 11:27] LABS: BASOPHILS ABSOLUTE AUTO 0.03 K/mm3 (0.00-0.23); BASOPHILS PERCENT AUTO 0 % (0-2); EOSINOPHILS PERCENT AUTO 0 % (0-6); Hematocrit 42.7 % (37.0-53.0); Hemoglobin 14.4 g/dL (13.5-17.5); IMMATURE GRAN ABSOLUTE AUTO 0.05 K/mm3 (0.00-0.10); IMMATURE GRAN PERCENT AUTO 0 % (0-1); LYMPHOCYTES ABSOLUTE AUTO 0.37 K/mm3 (0.84-5.20); LYMPHOCYTES PERCENT AUTO 3 % (21-46); MONOCYTES ABSOLUTE AUTO 0.39 K/mm3 (0.16-1.47); MONOCYTES PERCENT AUTO 3 % (4-13); Mean Corpuscular HGB 31.3 pg (26.0-34.0); Mean Corpuscular HGB Conc 33.7 g/dL (31.5-36.5); Mean Corpuscular Volume 93 fL (80-100); Mean Platelet Volume 9.6 fL (9.1-12.4); NEUTROPHILS ABSOLUTE AUTO 11.31 K/mm3 (1.96-9.15); NEUTROPHILS PERCENT AUTO 93 % (41-73); Platelet Count 146 K/mm3 (150-400); RDW Coefficient Variation 13.6 % (11.7-14.2); RDW Standard Deviation 46.4 fL (35.1-46.3); White Blood Cell Count 12.15 K/mm3 (4.00-11.30)
[2020-12-12 11:36] LABS: Alanine Aminotransfer (ALT/SGP 43 U/L (12-78); Albumin, Blood 3.6 g/dL (3.4-5.0); Albumin/Globulin Ratio 0.9 (0.8-1.8); Alk Phos 66 U/L (50-136); Anion Gap 7 mmol/L (6-16); Aspartate Aminotrans (AST/SGOT 30 U/L (12-37); Bilirubin, Total 0.2 mg/dL (0.1-1.0); Blood Urea Nitrogen 12 mg/dL (8-24); Bun/Creatinine Ratio 15.9 (12.0-20.0); CO2, Blood 26 mmol/L (21-32); Calcium, Blood 8.1 mg/dL (8.5-10.1); Chloride, Blood 95 mmol/L (98-108); Creatinine, Blood 0.76 mg/dL (0.60-1.20); Globulin, Blood 3.9 g/dL (2.2-4.0); Glomerular Filtration Rate >60 (60-); Glucose, Blood 120 mg/dL (70-99); Potassium, Blood 3.9 mmol/L (3.5-5.5); Sodium, Blood 128 mmol/L (136-145); Total Protein, Blood 7.5 g/dL (6.4-8.2)
[2020-12-12] MEDS ORDERED: CLIN300 PO (12:35)
== END 2020-12-12 12:43 | disposition home or self-care (01) ==
LOC: ER 10:23
PROVIDERS: Emergency Medicine
DX: U07.1 COVID-19 (principal); J12.82 Pneumonia due to coronavirus disease 2019; Z88.8 Allergy status to other drugs, medicaments and biological substances; Z79.899 Other long term (current) drug therapy
CPT/HCPCS: 36415; 80053; 83605; 85025; 99284; M0243; Q0243

== ENCOUNTER 2021-06-04 07:12 | Day surgery (SDC) | payer OTHER ==
[~2021-06-04] VITALS: Ht 172.7 cm; Wt 66.7 kg
[~2021-06-04 07:12] MED LIST changes: +CLIN300 PO
--- NOTE | 2021-06-04 08:11 | NUR ---
06/04/21 0811 Maria Luz Alxe PROCEDURE STAFF CLEANED HANDS AND FEET.
--- NOTE | 2021-06-04 09:32 | NUR ---
06/04/21 0932 Darya Cedeño PATIENT WAS BROUGHT IN TO STEP DOWN UNIT WITH DR. BETTS AND RN TO STEP-DOWN UNIT, PATIENT WITH MULTIPLE CO-MORBIDITIES: ALTERED MENTAL STATUS, ANXIETY, SEVERE AUTISM, BARRETTS, PSYCHOSIS, SCHIZOPHRENIA. CAREGIVERS AT BEDSIDE, PATIENT WAS GIVEN 1MG OF VERSED VIA IV BY DR. BETTS DUE TO PATIENT ANXIETY LEVEL, CAREGIVERS THEN PROCEEDED TO CUTS HIS HAIR, CUT NAILS, AND SHAVE PATIENT AT BEDSIDE. PATIENT'S VITAL SIGNS WITHIN PARARMETERS PER MD. PATIENT IS NOT COHERENT TO ENVIRONMENT, REQUIRES 24/7 SUPERVISION, PATIENT IS RESTING COMFORTABLY IN NO ACUTE DISTRESS, RESPIRATIONS EVEN AND UNLABORED, OPENS EYES, NON-VERBAL.
== END 2021-06-04 09:40 | disposition home or self-care (01) ==
LOC: ORSCSDS 07:12
PROVIDERS: Otolaryngology
PROC: 09C37ZZ Extirpation of Matter from Right External Auditory Canal, Via Natural or Artificial Opening (ICD-10-PCS; principal; 2021-06-04 07:30)
PROC: 09B Ear, Nose, Sinus, Excision (ICD-10-PCS; principal; 2021-06-04 07:30)
DX: H70.12 Chronic mastoiditis, left ear (principal); H61.21 Impacted cerumen, right ear; F84.0 Autistic disorder; G80.9 Cerebral palsy, unspecified; F20.9 Schizophrenia, unspecified; Z79.899 Other long term (current) drug therapy
CPT/HCPCS: A9270; J2250; J2704; J3010; J7120

== ENCOUNTER 2021-07-09 08:40 | Day surgery (SDC) | payer OTHER ==
[~2021-07-09] VITALS: Ht 175.3 cm; Wt 66.4 kg
--- NOTE | 2021-07-09 10:44 | NUR ---
07/09/21 1044 Sima Ruano LATE ENTRY: 1007 AT BEDSIDE INFORMED THAT BP IS TRENDING DOWN. IV LR FLUIDS OPENED WIDE AND PATIENT PUT IN [place] POSITION. GIVING EPHEDRINE 10MG IVP X1. PATIENTS VS STABLALIZED AFTER AND PATIENT STAYED IN RECOVERY FOR ADDITIONAL 20 MIN FOR OBSERVATION BEFORE DISCHARGE.
== END 2021-07-09 10:40 | disposition home or self-care (01) ==
LOC: ORSCSDS 08:40
PROVIDERS: Internal Medicine Gastroenterology
PROC: 0DB58ZX Excision of Esophagus, Via Natural or Artificial Opening Endoscopic, Diagnostic (ICD-10-PCS; principal; 2021-07-09 10:00)
DX: K22.70 Barrett's esophagus without dysplasia (principal); K21.9 Gastro-esophageal reflux disease without esophagitis; K31.89 Other diseases of stomach and duodenum; K44.9 Diaphragmatic hernia without obstruction or gangrene; F84.0 Autistic disorder; Z79.899 Other long term (current) drug therapy
CPT/HCPCS: 88305; J2250; J2370; J2704; J7120

== ENCOUNTER 2021-12-24 06:44 | Day surgery (SDC) | payer OTHER ==
--- NOTE | 2021-12-24 08:44 | NUR ---
12/24/[address] GAVE ORDERS TO KEEP PT IN PACU UNTIL PT GIVES SOME SIGN OF ALERTNESS BEFORE MOVING INTO STEP DOWN- PT IS NON VERBAL/ CEREBRAL PALSEY DX/AUSTISTIC/ SCHITZOPHRENIA PER DR HOWELL
--- NOTE | 2021-12-24 09:08 | NUR ---
12/24/21 0908 CRYSTAL CARTER PT CAREGIVERS ARE IN TRIMMING HIS HAIR AND SHAVING HIS FACE. ASSISTED BEST I COULD.
== END 2021-12-24 09:20 | disposition home or self-care (01) ==
LOC: ORSCSDS 06:44
PROVIDERS: Otolaryngology
PROC: 09B Ear, Nose, Sinus, Excision (ICD-10-PCS; principal; 2021-12-24 07:30)
PROC: 09C37ZZ Extirpation of Matter from Right External Auditory Canal, Via Natural or Artificial Opening (ICD-10-PCS; principal; 2021-12-24 07:30)
DX: H71.22 Cholesteatoma of mastoid, left ear (principal); H61.21 Impacted cerumen, right ear; F84.0 Autistic disorder; F20.9 Schizophrenia, unspecified; Z79.899 Other long term (current) drug therapy
CPT/HCPCS: A9270; J1100; J2250; J2405; J2704; J7120

== ENCOUNTER 2022-08-17 06:11 | Day surgery (SDC) | payer OTHER ==
[~2022-08-17] VITALS: Ht 170.2 cm; Wt 147.0 kg
--- NOTE | 2022-08-17 07:54 | NUR ---
[facility] VAN RIGHT OUTSIDE FACILITY BY ANESTHESIA DR BETTS AND THEN IMMEDIATELY TAKEN TO OR. NO VITALS WERE TAKEN IN PRE-OP DR BETTS AWARE. MEDICAL HISTORY VERIFIED BY CAREGIVERS.
--- NOTE | 2022-08-17 08:15 | NUR ---
08/17/22 0815 CRYSTAL CARTER NO PREOP VITALS TAKEN. PT WAS TAKEN DIRECTLY TO OR FROM VEHICLE. IV WAS STARTED IN OR. DR. BETTS STATES THAT PT DOES NOT HAVE TO HAVE A PAR SCORE OF 8/10 PT WAS NOT THAT PRIOR TO PROCEDURE. WE WERE ENCOURAGED TO MOVE PT TO SDU [facility] AND HAVE HIS CAREGIVERS COME IN SO THAT THEY COULD SHAVE HIM BEFORE HE WAKES UP.
--- NOTE | 2022-08-17 08:23 | NUR ---
08/17/22 0823 CRYSTAL CARTER PT HAS 2 OF HIS CAREGIVERS IN ROOM WITH PT. ASSISTING WITH SHAVING HIS HEAD AT THIS TIME. PT IS STILL SLEEPING REQUESTED/INSTRUCTED BY DR. BETTS.
[2022-08-17 08:35] VITALS: BP 85/63
== END 2022-08-17 09:25 | disposition home or self-care (01) ==
LOC: ORSCSDS 06:11
PROVIDERS: Otolaryngology
PROC: 09B Ear, Nose, Sinus, Excision (ICD-10-PCS; principal; 2022-08-17 07:30)
PROC: 09C38ZZ Extirpation of Matter from Right External Auditory Canal, Via Natural or Artificial Opening Endoscopic (ICD-10-PCS; principal; 2022-08-17 07:30)
DX: H70.12 Chronic mastoiditis, left ear (principal); H61.21 Impacted cerumen, right ear; K21.9 Gastro-esophageal reflux disease without esophagitis; F84.0 Autistic disorder; F20.9 Schizophrenia, unspecified; R73.9 Hyperglycemia, unspecified; R56.9 Unspecified convulsions; Z79.899 Other long term (current) drug therapy
CPT/HCPCS: A9270; J1100; J2250; J2405; J2704; J7120

== ENCOUNTER 2022-12-06 10:56 | Emergency (ER) | payer OTHER ==
[~2022-12-06] VITALS: Ht 177.8 cm; Wt 74.8 kg
[2022-12-06] MEDS ORDERED: ACET325 PO (11:49)
[2022-12-06] MEDS ORDERED: Celexa20 MG PO (11:49)
[2022-12-06] MEDS ORDERED: GUAI600T33 PO (11:50)
[2022-12-06] MEDS ORDERED: IBUP600 PO (11:50)
[2022-12-06] MEDS ORDERED: ONDA4ODT MM (11:50)
[2022-12-06] MEDS ORDERED: OLAN5 PO (11:50)
[2022-12-06] MEDS ORDERED: OMEP20ER PO (11:50)
[2022-12-06] MEDS ORDERED: THIO25 PO (11:51)
[2022-12-06 12:08] LABS: BASOPHILS ABSOLUTE AUTO 0.04 K/mm3 (0.00-0.23); BASOPHILS PERCENT AUTO 0 % (0-2); EOSINOPHILS ABSOLUTE AUTO 0.02 K/mm3 (0.00-0.68); EOSINOPHILS PERCENT AUTO 0 % (0-6); Hematocrit 40.7 % (37.0-53.0); Hemoglobin 14.1 g/dL (13.5-17.5); IMMATURE GRAN ABSOLUTE AUTO 0.19 K/mm3 (0.00-0.10); IMMATURE GRAN PERCENT AUTO 1 % (0-1); LYMPHOCYTES ABSOLUTE AUTO 0.27 K/mm3 (0.84-5.20); LYMPHOCYTES PERCENT AUTO 1 % (21-46); MONOCYTES ABSOLUTE AUTO 1.01 K/mm3 (0.16-1.47); MONOCYTES PERCENT AUTO 4 % (4-13); Mean Corpuscular HGB 30.1 pg (26.0-34.0); Mean Corpuscular HGB Conc 34.6 g/dL (31.5-36.5); Mean Corpuscular Volume 87 fL (80-100); Mean Platelet Volume 9.1 fL (9.1-12.4); NEUTROPHILS ABSOLUTE AUTO 21.21 K/mm3 (1.96-9.15); NEUTROPHILS PERCENT AUTO 93 % (41-73); Platelet Count 218 K/mm3 (150-400); RDW Coefficient Variation 13.2 % (11.7-14.2); RDW Standard Deviation 42.1 fL (35.1-46.3); Red Blood Cell Count 4.68 M/mm3 (4.30-5.90); White Blood Cell Count 22.74 K/mm3 (4.00-11.30)
[2022-12-06 12:18] LABS: Albumin, Blood 3.6 g/dL (3.4-5.0); Bilirubin, Total 0.4 mg/dL (0.1-1.0); Bun/Creatinine Ratio 13.9 (12.0-20.0); Calcium, Blood 8.6 mg/dL (8.5-10.1); Creatinine, Blood 0.65 mg/dL (0.60-1.20); Globulin, Blood 3.6 g/dL (2.2-4.0); Potassium, Blood 3.7 mmol/L (3.5-5.5); Total Protein, Blood 7.2 g/dL (6.4-8.2)
[2022-12-06] MEDS ORDERED: AMOXICILLI250 MG/51 PO (13:51)
[2022-12-06 14:06] VITALS: BP 111/62
== END 2022-12-06 14:40 | disposition home or self-care (01) ==
LOC: ER 10:56
PROVIDERS: Emergency Medicine
DX: J18.9 Pneumonia, unspecified organism (principal); Z88.8 Allergy status to other drugs, medicaments and biological substances; Z79.899 Other long term (current) drug therapy
CPT/HCPCS: 74022; 80053; 83690; 85025; 96372; 99284-25; A9270; J2250

== ENCOUNTER 2023-02-17 06:10 | Day surgery (SDC) | payer OTHER ==
[~2023-02-17] VITALS: Ht 170.2 cm; Wt 65.3 kg
[~2023-02-17 06:10] MED LIST changes: +ACET325 PO; +AMOXICILLI250 MG/51 PO; +Celexa20 MG PO
[2023-02-17] MEDS ORDERED: CLARITIN5 MG/5 M2 PO (06:45)
[2023-02-17] MEDS ORDERED: PAROEX473 ML MM (06:46)
[2023-02-17] MEDS ORDERED: DIAZ10 PO (06:47)
[2023-02-17] MEDS ORDERED: Haldol 5 mg Tab5 MG PO (06:48)
--- NOTE | 2023-02-17 08:45 | NUR ---
02/17/23 0845 Eliana Molina SEE ANESTHESIA NOTES FOR PRE PROCEDURAL SEDATION. PT IS IN BED AT THIS TIME WITH VITAL SIGN MONITORS ON. VSS AT THIS TIME. PT IS ACCOMPANIED BY 2 OF HIS CAREGIVERS. PT IS CALM AT THIS TIME. WARM BLANKETS PROVIDED. BED BUMPERS ARE ON.
--- NOTE | 2023-02-17 11:16 | NUR ---
02/17/23 1115 Pablo Elizabeth IV REMOVED INTACT. SITE WNL.
[2023-02-17 11:18] VITALS: BP 124/88
== END 2023-02-17 10:50 | disposition home or self-care (01) ==
LOC: ORSCSDS 06:10
PROVIDERS: Otolaryngology
PROC: 09B Ear, Nose, Sinus, Excision (ICD-10-PCS; principal; 2023-02-17 07:30)
PROC: 09C37ZZ Extirpation of Matter from Right External Auditory Canal, Via Natural or Artificial Opening (ICD-10-PCS; principal; 2023-02-17 07:30)
DX: H71.02 Cholesteatoma of attic, left ear (principal); H61.21 Impacted cerumen, right ear; F84.0 Autistic disorder; F20.9 Schizophrenia, unspecified; Z79.899 Other long term (current) drug therapy; G40.909 Epilepsy, unspecified, not intractable, without status epilepticus
CPT/HCPCS: A9270; J1100; J2250; J2405; J2704; J3010; J7120

== ENCOUNTER 2025-02-28 06:12 | Day surgery (SDC) | payer OTHER ==
[~2025-02-28] VITALS: Ht 157.5 cm; Wt 69.5 kg
[~2025-02-28 06:12] MED LIST changes: +ACET500 PO; +Abreva2 GM; +CITALOPRAM HBR20 M9 PO; +CLARITIN5 MG/5 M2 PO; +DIAZEPAM10 MG PO; +DULCOLAX400 MG/5 M PO; +FERROUS SULFATE; +HALOPERIDOL10 M2 PO; +MUCUS RELIEF PO; +OLANZAPINE5 M1 PO; +PAROEX473 ML MM; +THIORIDAZINE PO; +[UNRECOGNIZED DRUG - OTHER]
[2025-02-28] MEDS ORDERED: Ketamine HCl 100 MG / ML 5ML Vial ONE (07:20)
[2025-02-28] MEDS ORDERED: Glycopyrrolate 0.2 MG/ML 5ML VIAL ONE (07:21)
--- NOTE | 2025-02-28 07:21 | NUR ---
02/28/[address] IS MEETING WITH CAREGIVER AND PATIENT PAYER SPECIALIST AT 0721.
--- NOTE | 2025-02-28 08:08 | NUR ---
02/28/25 0808 Susan Key PT. IN OR FOR UPPER ENDO WITH BX'S & THEN OR CASE TO FOLLOW.
--- NOTE | 2025-02-28 08:27 | NUR ---
02/28/25 0827 Akanksha Zuñiga PATIENT IN THE ROOM AT 0746 FOR UPPER ENDOSCOPY, START WAS 0754 AND END TIME WAS 0813, START TIME FOR MASTOID DEBRIDEMENT WAS 0821.
--- NOTE | 2025-02-28 08:39 | NUR ---
02/28/25 0839 CRYSTAL CARTER PT GETTING NAILS TRIMMED BY CAREGIVERS WHILE PT SLEEPING.
--- NOTE | 2025-02-28 09:02 | NUR ---
02/28/25 0902 CRYSTAL CARTER PT NON VERBAL. JUST WAKING UP. DOES NOT APPEAR TO BE HAVING PAIN AT THIS TIME.
[2025-02-28 09:36] VITALS: BP 87/54
== END 2025-02-28 09:25 | disposition home or self-care (01) ==
LOC: ORSCSDS 06:12
PROVIDERS: Otolaryngology; Specialist
PROC: 0DB58ZX Excision of Esophagus, Via Natural or Artificial Opening Endoscopic, Diagnostic (ICD-10-PCS; principal; 2025-02-28 07:30)
PROC: 09C37ZZ Extirpation of Matter from Right External Auditory Canal, Via Natural or Artificial Opening (ICD-10-PCS; principal; 2025-02-28 07:30)
PROC: 09B Ear, Nose, Sinus, Excision (ICD-10-PCS; principal; 2025-02-28 07:30)
DX: K22.70 Barrett's esophagus without dysplasia (principal); K21.9 Gastro-esophageal reflux disease without esophagitis; K44.9 Diaphragmatic hernia without obstruction or gangrene; H71.02 Cholesteatoma of attic, left ear; H61.21 Impacted cerumen, right ear; F20.9 Schizophrenia, unspecified; F84.0 Autistic disorder; Z79.899 Other long term (current) drug therapy
CPT/HCPCS: 88305; A9270; J2704